=== PATIENT | female | born 1990 | race Caucasian/White ===

== ENCOUNTER 2016-11-17 09:12 | Emergency (ER) | payer SELFPAY ==
[~2016-11-17] VITALS: Ht 167.6 cm; Wt 62.6 kg
[2016-11-17 09:26] VITALS: BP 107/66
[2016-11-17] MEDS ORDERED: ZITHROMAX250 MG ORAL (09:33)
[2016-11-17] MEDS ORDERED: LIDOCAINE VISCO20 ML PO (09:33)
[2016-11-17] MEDS ORDERED: Lidocaine 2% Visc 15ml soln ORAL ONE (09:45)
[2016-11-17 09:52] VITALS: BP 107/66
--- NOTE | 2016-11-17 13:36 | Emergency Room Report ---
History of Present Illness General Chief Complaint: Sore Throat Source: Patient Present Illness HPI Patient is a 26-year-old female presented after increased sore throat. Patient gradual onset of symptoms of the past 2 days. Patient had prior history of multiple recurrent tonsillar infections. The patient had recurrent a previous strep infections. She denied cough. She reported having some pain to her tonsillar area. She denied any severe neck pain. Allergies: Coded Allergies: PENICILLINS (Verified Allergy, Unknown, 11/17/16) SULFAMETHOXAZOLE (Verified Allergy, Unknown, 11/17/16) TRIMETHOPRIM (Verified Allergy, Unknown, 11/17/16) Patient History Past Medical History: see triage record Reviewed Nursing Documentation: PMH: Agreed, PSxH: Agreed Nursing Documentation-PMH Past Medical History: No Stated History Review of Systems All Other Systems: negative except mentioned in HPI Physical Exam Vital Signs Date Time Temp Pulse Resp B/P Pulse Ox O2 Delivery O2 Flow Rate FiO2 11/17/16 09:16 98.2 87 20 107/66 100 Room Air General Appearance: well appearing, no apparent distress Head: normocephalic, atraumatic ENT: hearing grossly normal, normal voice, uvula midline, tonsillar swelling, tonsillar exudate Neck: full range of motion, supple Respiratory: no respiratory distress, speaking full sentences Cardiovascular #1: normal inspection, regular rate, rhythm, no edema Gastrointestinal: normal inspection Musculoskeletal: normal inspection, back normal, digits/nails normal, gait/ station normal, no calf tenderness Neurologic: normal inspection, alert, oriented x3, responsive, normal gait Psychiatric: mood/affect normal Skin: no rash Medical Decision Making Diagnostic Impression: Primary Impression: Tonsillitis with exudate ER Course Patient was ever sore throat. Differential diagnosis included but was not limited to meningitis, exudative tonsillitis, retropharyngeal abscess, epiglottitis, strep pharyngitis. The patient presented with a tonsillitis. Patient was given a prescription for azithromycin. The patient is advised to follow up with primary care doctor in 1-2 days. Patient is advised to return if any worsening condition or if any changes in status that are concerning. Last Vital Signs Date Time Temp Pulse Resp B/P Pulse Ox O2 Delivery O2 Flow Rate FiO2 11/17/16 09:52 98.2 67 20 107/66 100 Room Air Status: improved Disposition: HOME, SELF-CARE Condition: Stable Scripts Lidocaine HCl (Lidocaine HCl Viscous) 100 Ml Solution 20 ML PO THREE TIMES A DAY, #120 ML Prov: Ananda Macedo 11/17/16 Azithromycin* (ZITHROMAX*) 250 Mg Tablet 250 MG ORAL DAILY, #6 TAB 0 Refills Take two tables once daily for 1 day, then one tablet once daily for 4 days. Prov: Ananda Macedo 11/17/16 Referrals: NON PHYSICIAN (PCP) Patient Instructions: Tonsillitis Ananda Macedo November 17, 2016 13:36
== END 2016-11-17 09:55 | disposition home or self-care (01) ==
LOC: EMR 09:26
DX: J02.9 Acute pharyngitis, unspecified (principal); J03.90 Acute tonsillitis, unspecified; Z88.0 Allergy status to penicillin; Z88.2 Allergy status to sulfonamides
CPT/HCPCS: 99284